=== PATIENT | female | born 1945 | race Caucasian/White ===

== ENCOUNTER 2017-01-05 00:57 | Emergency (ER) | payer MEDICARE, OTHER ==
[~2017-01-05] VITALS: Ht 160 cm; Wt 93.2 kg
[~2017-01-05 00:57] MED LIST: ACET-2321 PO; ACET325T51 PO; ASPI-1115 PO; ATOR20TA59 PO; CALC600T86 PO; CELE200C PO; HYDR-2164 PO; LEVO75TA58 PO; METO-64 PO; NIAC500T22 PO; OMEP-29 PO; ONDA4TAB4 PO; OXYC5TAB84 PO; POLY17PO18 PO; SODI3.5O5 BOTH EYES; [UNRECOGNIZED DRUG - OTHER] PO
--- OUTSIDE RECORDS SUMMARY | 2017-01-05 01:02 | XMS REPORT | Referral Summary ---
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 Diagnosis: Borderline diabetes Discharge Diagnosis: GERD (gastroesophageal reflux disease) Discharge Diagnosis: Hypertension Discharge Diagnosis: Hypothyroidism Discharge Diagnosis: Unilateral primary osteoarthritis, left hip Discharge Diagnosis: High cholesterol Discharge Disposition: 01-Home or Self Care Attending Physician: Jerry Daniel MD Admitting Physician: Jerry Daniel MD Referring Physician: Oswaldo Price MD Vital Signs Most recent to 1 oldest [Reference Range]: Blood Pressure 142/90 mmHg [90-140/60-90 mmHg] *HI* (11/02/16 9:05 AM) Problem List Condition Effective Dates Status Health Status Informant Appendectomy(Confirm 1991 - 1991 Resolved ed)1 Chest Active pain(Confirmed) GERD Active (gastroesophageal reflux disease)(Confirmed) H/O urinary Active retention(Confirmed) HH (hiatus Active hernia)(Confirmed) High Active cholesterol(Confirme d) Hyperlipidemia(Confi Active rmed) Hypertension(Confirm Active ed) Hypothyroidism(Confi Active rmed) Borderline Active diabetes(Confirmed) Benign Mass of Active foot(Confirmed) 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) Seizures(Confirmed) Resolved 1TAH Allergies, Adverse Reactions, Alerts Substance Reaction Severity Status HYDROcodone N/V Active Medications aspirin 325 mg oral tablet 1 tabs, Oral, Daily, # 30 tabs, 0 Refill(s) Start Date: 07/14/14 Status: Ordered atorvastatin 20 mg oral tablet See Instructions, TAKE ONE TABLET BY MOUTH DAILY, # 90 tabs, 1 Refill(s), eRx: [facility] #[id number] Start Date: 10/09/16 Status: Ordered calcium (as carbonate) 600 mg oral tablet 1 tabs, Oral, BID, # 60 tabs, 0 Refill(s) Start Date: 07/14/14 Status: Ordered hydrochlorothiazide 25 mg oral tablet 25 mg 1 tabs, Oral, Daily, # 90 tabs, 1 Refill(s), Pharmacy: [facility] # [id number], 1 tabs Oral Daily,x90 days Start Date: 05/22/16 Stop Date: 08/20/16 Status: Ordered levothyroxine 75 mcg (0.075 mg) oral tablet See Instructions, TAKE ONE TABLET BY MOUTH DAILY, # 30 tabs, 5 Refill(s), eRx: [facility] #[id number], TAKE ONE TABLET BY MOUTH DAILY Start Date: 09/08/16 Status: Ordered meclizine 25 mg oral tablet 25 mg 1 tabs, Oral, TID, as needed for dizziness, 0 Refill(s) Start Date: 12/03/15 Status: Ordered Metoprolol Succinate ER 50 mg oral tablet, extended release 50 mg 1 tabs, Oral, Daily, # 90 tabs, 1 Refill(s), Pharmacy: [facility] # [id number] Start Date: 05/22/16 Status: Ordered Leigh Ann 128 ophthalmic ointment 0 Refill(s) Start Date: 11/16/14 Status: Ordered niacin 500 mg oral capsule 500 mg 1 caps, Oral, Daily, # 60 caps, 0 Refill(s) Start Date: 11/02/16 Status: Ordered omeprazole 20 mg oral delayed release capsule See Instructions, TAKE ONE CAPSULE BY MOUTH EVERY DAY, # 30 caps, 3 Refill(s), eRx: [facility] #[id number], TAKE ONE CAPSULE BY MOUTH EVERY DAY Start Date: 05/08/16 Status: Ordered Results Hematology Most recent to 1 oldest [Reference Range]: WBC [4.8-10.8 5.7 10*3/uL 10*3/uL] (11/02/16 10:07 AM) RBC [4.00-5.20] 4.82 (11/02/16 10:07 AM) Hgb [12.0-16.0 14.3 gm/dL gm/dL] (11/02/16 10:07 AM) Hct [37.0-47.0 %] 43.6 % (11/02/16 10:07 AM) MCV [82.0-99.0 fL] 90.5 fL (11/02/16 10:07 AM) MCH [27.0-32.0 pg] 29.7 pg (11/02/16 10:07 AM) MCHC [32.0-36.0 32.8 gm/dL gm/dL] (11/02/16 10:07 AM) RDW [11.5-14.5 %] 13.2 % (11/02/16 10:07 AM) Platelet [150-400 255 10*3/uL 10*3/uL] (11/02/16 10:07 AM) MPV [8.8-14.8 fL] 10.8 fL (11/02/16 10:07 AM) Immature 0.4 % Granulocytes (11/02/16:07 AM) [0.0-1.0 %] Neutrophils [51-75 47 % %] *LOW* (11/02/16 10:07 AM) Lymphocytes [20-46 39 % %] (11/02/16 10:07 AM) Monocytes [4-11 %] 9 % (11/02/16 10:07 AM) Eosinophils [0-4 %] 3 % (11/02/16 10:07 AM) Basophils [0-2 %] 1 % (11/02/16 10:07 AM) Neutro Absolute 2.69 [1.90-7.00] (11/02/16 10:07 AM) Lymph Absolute 2.21 [0.80-3.30] (11/02/16 10:07 AM) [place] Absolute 0.52 [0.30-1.00] (11/02/16 10:07 AM) Eos Absolute 0.18 [0.00-0.50] (11/02/16 10:07 AM) Baso Absolute 0.05 [0.00-0.20] (11/02/16 10:07 AM) Chemistry Most recent to 1 oldest [Reference Range]: Sodium Lvl [135-144 145 mEq/L mEq/L] *HI* (11/02/16 10:07 AM) Potassium Lvl 3.9 mEq/L [3.5-5.2 mEq/L] (11/02/16 10:07 AM) Chloride [99-111 106 mEq/L mEq/L] (11/02/16 10:07 AM) CO2 [22-31 mEq/L] 29 mEq/L (11/02/16 10:07 AM) AGAP [3-20] 10 (11/02/16 10:07 AM) BUN [10-20 mg/dL] 23 mg/dL *HI* (11/02/16 10:07 AM) Glucose Lvl [70-99 107 mg/dL mg/dL] *HI* (11/02/16 10:07 AM) Creatinine Lvl 0.76 mg/dL [0.57-1.11 mg/dL] (11/02/16 10:07 AM) eGFR [>60 mL/min] >60 mL/min 1 (11/02/16 10:07 AM) Calcium Lvl 10.2 mg/dL [8.9-10.5 mg/dL] (11/02/16 10:07 AM) Albumin Lvl [3.4-4.8 4.4 gm/dL gm/dL] (11/02/16 10:07 AM) Total Protein 7.3 gm/dL [6.0-7.6 gm/dL] (11/02/16 10:07 AM) Globulin [1.8-4.0 2.9 gm/dL gm/dL] (11/02/16 10:07 AM) ALT [0-55 U/L] 32 U/L (11/02/16 10:07 AM) AST [5-34 U/L] 25 U/L (11/02/16 10:07 AM) Alk Phos [40-150 79 U/L U/L] (11/02/16 10:07 AM) Bili Total [0.2-1.2 1.0 mg/dL mg/dL] (11/02/16 10:07 AM) Hgb A1c [4.1-5.6 %] 6.2 % *HI* (11/02/16 10:07 AM) eAvg Glucose 131.2 mg/dL (11/02/16 10:07 AM) 1Result Comment: Multiply eGFR results by 1.21 for race. Immunizations Given and Recorded Vaccine Date Status Refusal Reason influenza virus vaccine, inactivated1 07/21/15 Recorded influenza virus vaccine, inactivated 07/22/14 Recorded influenza virus vaccine, live 06/25/12 Given 1Location History: [facility] Procedures Procedure Date Related Diagnosis Body Site Colonoscopy 02/06/13 Excision of benign neoplasm1 11/16/11 Pap smear, as part of routine gynecological 02/24/08 examination Colonoscopy2 09/27/07 Excision of soft tissue mass-left foot 09/27/07 Djrkcmigaqb-yajnvy-lhore cancer screening 2006 Cardiac catheterization-normal 2002 Catheterization of artery 1999 Appendectomy 1991 Hysterectomy1991 1left foot 2repeat in 09-27-17 3ovary sparing GONZALEZ Social History Social History Type Response Smoking Status Never smoker Assessment and Plan Extracted from: Title: Ambulatory Patient Education Author: Jerry Daniel MD Date: 10/07 Anesthesiology General Anesthesia, Adult, Care After Refer to this sheet in the next few weeks. These instructions provide you with information on caring for yourself after your procedure. Your health care provider may also give you more specific instructions. Your treatment has been planned according to current medical practices, but problems sometimes occur. Call your health care provider if you have any problems or questions after your procedure. WHAT TO EXPECT AFTER THE PROCEDURE After the procedure, it is typical to experience: Sleepiness. Nausea and vomiting. HOME CARE INSTRUCTIONS For the first 24 hours after general anesthesia: Have a responsible person with you. Do not drive a car. If you are alone, do not take public transportation. Do not drink alcohol. Do not take medicine that has not been prescribed by your health care provider. Do not sign important papers or make important decisions. You may resume a normal diet and activities as directed by your health care provider. Change bandages (dressings) as directed. If you have questions or problems that seem related to general anesthesia , call the hospital and ask for the ramp flight attendant or anesthesiologist electronic transaction implementer. SEEK MEDICAL CARE IF: You have nausea and vomiting that continue the day after anesthesia. You develop a rash. SEEK IMMEDIATE MEDICAL CARE IF: You have difficulty breathing. You have chest pain. You have any allergic problems. This information is not intended to replace advice given to you by your health care provider. Make sure you discuss any questions you have with your health care provider. Document Released: 01/14/2002 Document Revised: 10/29/2015 Document Reviewed: [employer] Interactive Patient Education 2016 [employer] Dentistry General Anesthesia, Adult General anesthesia is a sleep-like state of non-feeling produced by medicines ( anesthetics). General anesthesia prevents you from being alert and feeling pain during a medical procedure. Your caregiver may recommend general anesthesia if your procedure: Is long. Is painful or uncomfortable. Would be frightening to see or hear. Requires you to be still. Affects your breathing. Causes significant blood loss. LET YOUR CAREGIVER KNOW ABOUT: Allergies to food or medicine. Medicines taken, including vitamins, herbs, eyedrops, [id number]-miqxnrg medicines, and creams. Use of steroids (by mouth or creams). Previous problems with anesthetics or numbing medicines, including problems experienced by relatives. History of bleeding problems or blood clots. Previous surgeries and types of anesthetics received. Possibility of , if this applies. Use of cigarettes, alcohol, or illegal drugs. Any health condition(s), especially diabetes, sleep apnea, and high blood pressure. RISKS AND COMPLICATIONS General anesthesia rarely causes complications. However, if complications do occur, they can be life threatening. Complications include: A lung infection. A stroke. A heart attack. Waking up during the procedure. When this occurs, the patient may be unable to move and communicate that he or she is awake. The patient may feel severe pain. Older adults and adults with serious medical problems are more likely to have complications than adults who are young and healthy. Some complications can be prevented by answering all of your caregiver's questions thoroughly and by following all pre-procedure instructions. It is important to tell your caregiver if any of the pre-procedure instructions, especially those related to diet, were not followed. Any food or liquid in the stomach can cause problems when you are under general anesthesia. BEFORE THE PROCEDURE Ask your caregiver if you will have to spend the night at the hospital. If you will not have to spend the night, arrange to have an adult drive you and stay with you for 24 hours. Follow your caregiver's instructions if you are taking dietary supplements or medicines. Your caregiver may tell you to stop taking them or to reduce your dosage. Do not smoke for as long as possible before your procedure. If possible, stop smoking 36 weeks before the procedure. Do not take new dietary supplements or medicines within 1 week of your procedure unless your caregiver approves them. Do not eat within 8 hours of your procedure or as directed by your caregiver. Drink only clear liquids, such as water, black coffee (without milk or cream), and fruit juices (without pulp). Do not drink within 3 hours of your procedure or as directed by your caregiver. You may brush your teeth on the morning of the procedure, but make sure to spit out the toothpaste and water when finished. PROCEDURE You will receive anesthetics through a mask, through an intravenous (IV) access tube, or through both. A doctor who specializes in anesthesia (anesthesiologist ) or a nurse who specializes in anesthesia (nurse ramp flight attendant) or both will stay with you throughout the procedure to make sure you remain unconscious. He or she will also watch your blood pressure, pulse, and oxygen levels to make sure that the anesthetics do not cause any problems. Once you are asleep, a breathing tube or mask may be used to help you breathe. AFTER THE PROCEDURE You will wake up after the procedure is complete. You may be in the room where the procedure was performed or in a recovery area. You may have a sore throat if a breathing tube was used. You may also feel: Dizzy. Weak. Drowsy. Confused. Nauseous. Cold. These are all normal responses and can be expected to last for up to 24 hours after the procedure is complete. A caregiver will tell you when you are ready to go home. This will usually be when you are fully awake and in stable condition. This information is not intended to replace advice given to you by your health care provider. Make sure you discuss any questions you have with your health care provider. Document Released: 01/14/2009 Document Revised: 10/29/2015 Document Reviewed: [employer] Interactive Patient Education 2016 [employer] Emergency Medicine Heartburn Heartburn is a painful, burning sensation in the chest. It may feel worse in certain positions, such as lying down or bending over. It is caused by stomach acid backing up into the tube that carries food from the mouth down to the stomach (lower esophagus). CAUSES Large meals. Certain foods and drinks. Exercise. Increased acid production. Being overweight or obese. Certain medicines. SYMPTOMS Burning pain in the chest or lower throat. Bitter taste in the mouth. Coughing. DIAGNOSIS If the usual treatments for heartburn do not improve your symptoms, then tests may be done to see if there is another condition present. Possible tests may include: X-rays. Endoscopy. This is when a tube with a light and a camera on the end is used to examine the esophagus and the stomach. A test to measure the amount of acid in the esophagus (pH test). A test to see if the esophagus is working properly (esophageal manometry) . Blood, breath, or stool tests to check for bacteria that cause ulcers. TREATMENT Your caregiver may tell you to use certain xxra-pto-pulwbif medicines ( antacids, acid reducers) for mild heartburn. Your caregiver may prescribe medicines to decrease the acid in your stomach or protect your stomach lining. Your caregiver may recommend certain diet changes. For severe cases, your caregiver may recommend that the head of your bed be elevated on blocks. (Sleeping with more pillows is not an effective treatment as it only changes the position of your head and does not improve the main problem of stomach acid refluxing into the esophagus.) HOME CARE INSTRUCTIONS Take all medicines as directed by your caregiver. Raise the head of your bed by putting blocks under the legs if instructed to by your caregiver. Do not exercise right after eating. Avoid eating 2 or 3 hours before bed. Do not lie down right after eating. Eat small meals throughout the day instead of 3 large meals. Stop smoking if you smoke. Maintain a healthy weight. Identify foods and beverages that make your symptoms worse and avoid them. Foods you may want to avoid include: Peppers. Chocolate. High-fat foods, including fried foods. Spicy foods. Garlic and onions. [place] fruits, including oranges, grapefruit, perez, and limes. Food containing tomatoes or tomato products. Mint. Carbonated drinks, caffeinated drinks, and alcohol. Vinegar. SEEK IMMEDIATE MEDICAL CARE IF: You have severe chest pain that goes down your arm or into your jaw or neck. You feel sweaty, dizzy, or lightheaded. You are short of breath. You vomit blood. You have difficulty or pain with swallowing. You have bloody or black, tarry stools. You have episodes of heartburn more than 3 times a week for more than 2 weeks. MAKE SURE YOU: Understand these instructions. Will watch your condition. Will get help right away if you are not doing well or get worse. This information is not intended to replace advice given to you by your health care provider. Make sure you discuss any questions you have with your health care provider. Document Released: 02/24/2010 Document Revised: 12/30/2012 Document Reviewed: [employer] Interactive Patient Education 2016 [email or web address]. Preventive Medicine Blood Glucose Monitoring, Adult Monitoring your blood glucose (also know as blood sugar) helps you to manage your diabetes. It also helps you and your health care provider monitor your diabetes and determine how well your treatment plan is working. WHY SHOULD YOU MONITOR YOUR BLOOD GLUCOSE? It can help you understand how food, exercise, and medicine affect your blood glucose. It allows you to know what your blood glucose is at any given moment. You can quickly tell if you are having low blood glucose (hypoglycemia) or high blood glucose (hyperglycemia). It can help you and your health care provider know how to adjust your medicines. It can help you understand how to manage an illness or adjust medicine for exercise. WHEN SHOULD YOU TEST? Your health care provider will help you decide how often you should check your blood glucose. This may depend on the type of diabetes you have, your diabetes control, or the types of medicines you are taking. Be sure to write down all of your blood glucose readings so that this information can be reviewed with your health care provider. See below for examples of testing times that your health care provider may suggest. Type 1 Diabetes Test at least 2 times per day if your diabetes is well controlled, if you are using an insulin pump, or if you perform multiple daily injections. If your diabetes is not well controlled or if you are sick, you may need to test more often. It is a good idea to also test: Before every insulin injection. Before and after exercise. Between meals and 2 hours after a meal. Occasionally between 2:00 a.m. and 3:00 a.m. Type 2 Diabetes If you are taking insulin, test at least 2 times per day. However, it is best to test before every insulin injection. If you take medicines by mouth (orally), test 2 times a day. If you are on a controlled diet, test once a day. If your diabetes is not well controlled or if you are sick, you may need to monitor more often. HOW TO MONITOR YOUR BLOOD GLUCOSE Supplies Needed Blood glucose meter. Test strips for your meter. Each meter has its own strips. You must use the strips that go with your own meter. A pricking needle (lancet). A device that holds the lancet (lancing device). A journal or log book to write down your results. Procedure Wash your hands with soap and water. Alcohol is not preferred. Prick the side of your finger (not the tip) with the lancet. Gently milk the finger until a small drop of blood appears. Follow the instructions that come with your meter for inserting the test strip, applying blood to the strip, and using your blood glucose meter. Other Areas to Get Blood for Testing Some meters allow you to use other areas of your body (other than your finger) to test your blood. These areas are called alternative sites. The most common alternative sites are: The forearm. The thigh. The back area of the lower leg. The palm of the hand. The blood flow in these areas is slower. Therefore, the blood glucose values you get may be delayed, and the numbers are different from what you would get from your fingers. Do not use alternative sites if you think you are having hypoglycemia. Your reading will not be accurate. Always use a finger if you are having hypoglycemia. Also, if you cannot feel your lows (hypoglycemia unawareness), always use your fingers for your blood glucose checks. ADDITIONAL TIPS FOR GLUCOSE MONITORING Do not reuse lancets. Always carry your supplies with you. All blood glucose meters have a 24-hour "hotline" number to call if you have questions or need help. Adjust (calibrate) your blood glucose meter with a control solution after finishing a few boxes of strips. BLOOD GLUCOSE RECORD KEEPING It is a good idea to keep a daily record or log of your blood glucose readings. Most glucose meters, if not all, keep your glucose records stored in the meter. Some meters come with the ability to download your records to your home computer. Keeping a record of your blood glucose readings is especially helpful if you are wanting to look for patterns. Make notes to go along with the blood glucose readings because you might forget what happened at that exact time. Keeping good records helps you and your health care provider to work together to achieve good diabetes management. This information is not intended to replace advice given to you by your health care provider. Make sure you discuss any questions you have with your health care provider. Document Released: 10/10/2004 Document Revised: 10/29/2015 Document Reviewed: [employer] Interactive Patient Education 2016 [employer] No follow up information was provided. Extracted from: Title: Office Visit Note Author: Jerry Daniel MD Date: 11/02/16 Assessment/Plan 1.Borderline diabetes Will recheck a HgA1C and informed patient that we should see her every 3 months with lab. Ordered: Periodic Comp Preventive Med 65+ years Est 55272 2.GERD (gastroesophageal reflux disease) Continue with the current medications which seems to be working well. Ordered: Periodic Comp Preventive Med 65+ years Est 61976 3.High cholesterol Lab. Ordered: Periodic Comp Preventive Med 65+ years Est 60830 4.Hypertension No change in treatment. Ordered: Periodic Comp Preventive Med 65+ years Est 58367 5.Hypothyroidism Same medication to be taken daily. Ordered: Periodic Comp Preventive Med 65+ years Est 43984 6.Degenerative joint disease (DJD) of hip, I find patient stable for surgery and awaiting the lab and chest x-ray. Unilateral primary osteoarthritis, left hip Ordered: Periodic Comp Preventive Med 65+ years Est 55740 Borderline hyperglycemia. Ordered: Hemoglobin A1c Periodic Comp Preventive Med 65+ years Est 27924 Pre-op testing Ordered: CBC w/ Differential Comprehensive Metabolic Panel Periodic Comp Preventive Med 65+ years Est 44082 XR Chest 2 Views
--- OUTSIDE RECORDS SUMMARY | 2017-01-05 01:02 | XMS REPORT | Continuity of Care Document ---
Author Author [facility]IVE Organization [facility] Address Unknown Phone Unavailable Support Name Relationship Address Phone LONI WHITE MD Caregiver [address] [place] [phone] JUAN CARLOS GARCIA MD Caregiver [address] [place] [phone] RAMÓN MANCUSO Next Of Kin [address] [place] [address] Insurance Providers Payer Name Policy Number Subscriber Name Relationship Medicare [id number] Suyapa Mancuso 18 Self [employer] [id number] Suyapa Mancuso 18 Self Advance Directives Directive Response Recorded Date/Time Ordered Resuscitation Status Full Code 12/07/14 10:30am Resuscitation Documents on File Yes 12/07/14 9:17am Chief Complaint and Reason for Visit Chief Complaint LT TOTAL KNEE ARTHROPLASTY Reason for Visit Degenerative arthritis of left knee GERD (gastroesophageal reflux disease) Hyperlipemia Hypothyroidism Obesity (BMI 30-39.9) History of seizure Problems Medical Problems Problem Onset Date Status Degenerative arthritis of left knee Unknown Active GERD (gastroesophageal reflux disease) Unknown Active Hyperlipemia Unknown Active Hypothyroidism Unknown Active Obesity (BMI 30-39.9) Unknown Active History of seizure Unknown Active Medications Medication Dose Route Sig Days/Qty Instructions Order Date Discontinued Date Status Metoprolol Succinate 50 Mg PO DAILY 11/14/11 Active Hydrochlorothiazide 25 Mg PO DAILY 11/14/11 Active Levothyroxine Sodium 75 Mcg PO DAILY 11/14/11 Active Omeprazole 20 Mg PO DAILY 11/14/11 Active Aspirin 325 Mg PO DAILY 11/14/11 12/09/14 Discontinued Calcium Carbonate 600 Mg PO TWICE A DAY 11/14/11 Active Ezetimibe/Simvastatin 1 Tab PO DAILY 11/14/11 Active Sodium Chloride 11/19/14 Active Ferrous Sulfate Unknown Dose PO GIVE WITH BREAKFAST BEST WITH FOOD. Active Vits W-Ca,Fe,FA(<1Mg) 1 Tab PO DAILY 12/08/14 Active Acetaminophen 650 Mg PO FOUR TIMES DAILY 100 Qty 12/09/14 Active Aspirin 325 Mg PO TWICE A DAY 84 Qty 12/09/14 Active Meloxicam 15 Mg PO DAILY 30 Qty 12/09/14 Active Tramadol HCl 50-100 Mg PO Q4H PRN PAIN 60 Qty 12/09/14 Active Docusate Sodium 1 Cap PO TWICE A DAY 30 Qty 12/09/14 Active Social History Social History Problem Response Recorded Date/Time Chewing Tobacco Status No 02/04/2013 12:18pm Hx Substance Use No 02/04/2013 12:18pm Hx Alcohol Use No 02/04/2013 12:18pm Has the pt used tobacco in the last 12 months No 02/04/2013 12:18pm Query Response Start Date Stop Date Smoking Status Never smoker Hospital Discharge Instructions Instructions: Care Instructions: Reason for Hospitalization: Left knee replacement I was in the hospital because (patient own words): HAVING KNEE SURGERY ON MY LEFT KNEE Discharge Diet: regular Discharge Activity: WBAT Follow Up Appointments: DR WHITE ON December AT 9:45 AM FABIAN ON 12-11-14 AT 1:30PM FOR PHYSICAL THERAPY EVAL. PHONE [phone] Condition at time of discharge: Good Good Pass Condition at time of discharge: Good Pass Pass Plan of Care Discharge Date 12/09/14 4:33pm Disposition 01 DISCHARGED HOME, SELF-CARE Instructions/Education Provided [facility] Postop Instructions Prescriptions See Medications Section Functional Status Query Response Date Recorded Physical Hygiene Self December 09, 2014 3:46pm Disabilities None December 09, 2014 3:46pm Devices Used Walker December 09, 2014 3:46pm Dressing Self December 09, 2014 3:46pm Ambulation Self December 09, 2014 3:46pm Diet Self December 09, 2014 3:46pm Mental Status Alert Oriented December 09, 2014 3:46pm Disabilities None December 09, 2014 3:46pm Devices Used Walker December 09, 2014 3:46pm Physical Hygiene Self December 09, 2014 3:46pm Dressing Self December 09, 2014 3:46pm Ambulation Self December 09, 2014 3:46pm Diet Self December 09, 2014 3:46pm Allergies, Adverse Reactions, Alerts Allergen Type Severity Reaction Status Last Updated hydrocodone bit Adverse Reaction Unknown N/V Active 12/07/14 Immunizations Name Given Type Hx Influenza Vaccination Y JUL 2011 Historical Hx Pneumococcal Vaccination N JUL 2011 Historical Hx Influenza Vaccination Y JUL 2011 Historical Vital Signs Acute Vital Signs Vital Response Date/Time Temperature (Fahrenheit) 97.7 deg F (96.8 - 99.1) Temperature (Calculated Celsius) 36.39064 degrees C (36.0 - 37.3) Pulse Rate (adult) 71 bpm (60 - 100) Respiratory Rate 14 breaths/min (10 - 20) O2 Sat by Pulse Oximetry 94 % (90 - 100) Oxygen Delivery Method Room Air Blood Pressure 97/51 mm Hg Blood Pressure Source Automatic Cuff Height 5 ft 3 in Weight 218 lb Body Mass Index 38.0 kg/m^2 Results Test Source Date Result Interp. Ref. Range Comments Anion Gap December 09, 2014 5:09am 9 MEQ/L N 5-15 BUN/Creatinine Ratio December 09, 2014 5:09am 33 RATIO H 6-26 Blood Urea Nitrogen December 09, 2014 5:09am 26.0 MG/DL H 7-17 Calcium Level December 09, 2014 5:09am 9.9 MG/DL N 8.4-10.2 Calculated Osmolality December 09, 2014 5:09am 278 MOSM/KG N 261-280 Carbon Dioxide Level December 09, 2014 5:09am 27 MEQ/L N 22-30 Chemistry Specimen Hemolysis December 09, 2014 5:09am < 15 0-25 0-25 : No Hemolysis.26-70: Slight Hemolysis - can falsely elevate K and Urine Protein. 71-285: Moderate Hemolysis - can falsely elevate K, Troponin I, CA 19-9, PTH, CSF GLucose, and Urine Protein, and can falsely decrease Phenytoin. 286-999: Gross Hemolysis - can falsely elevate K, Troponin I, CA 19-9, PTH, CSF Glucose, and Urine Protine, and can falsely decrease Phenytoin. Recommend specimen recollection. Chloride Level December 09, 2014 5:09am 106 MEQ/L N 98-107 Creatinine December 09, 2014 5:09am 0.8 MG/DL N 0.7-1.2 Glomerular Filtration Rate Calc December 09, 2014 5:09am 71 - Glucose Level December 09, 2014 5:09am 107 MG/DL N 65-110 Hematocrit December 09, 2014 5:09am 38.1 % N 36-46 Hemoglobin December 09, 2014 5:09am 12.7 GM/DL N 12-16 Icterus Index December 09, 2014 5:09am < 2 0-7 MRSA Specimen Source November 17, 2014 1:32pm Nasal - COMMENT V74.8 Mean Corpuscular Hemoglobin December 09, 2014 5:09am 30.8 UUG N 26-34 Mean Corpuscular Hemoglobin Concent December 09, 2014 5:09am 33.3 GM/DL N 31-37 Mean Corpuscular Volume December 09, 2014 5:09am 92.5 UM3 N 80-100 Mean Platelet Volume December 09, 2014 5:09am 10.7 UM3 N 9.4-12.4 Methicillin-Resist S.aureus DNA PCR November 17, 2014 1:32pm Negative - COMMENT V74.8 Platelet Count December 09, 2014 5:09am 218 T/MM3 N 130-400 Potassium Level December 09, 2014 5:09am 3.8 MEQ/L N 3.6-5 RDW Standard Deviation December 09, 2014 5:09am 43.3 FL N 36.9-50.2 Red Blood Count December 09, 2014 5:09am 4.12 M/MM3 N 4.00-5.20 Sodium Level December 09, 2014 5:09am 142 MEQ/L N 134-144 Turbidity December 09, 2014 5:09am < 20 0-20 White Blood Count December 09, 2014 5:09am 12.2 T/MM3 H 4.5-11.0 Name: SUYAPA MANCUSO Unit #: [id number] : 1945 Sex: F Loc / Svc: MED DOS: Signed Report #: [id number] DIAGNOSTIC IMAGING REPORT TYPE OF EXAM: KNEE LEFT 2 VIEW Dictated By: WALTER BENSON MD Indication: ITS.REASON: POSTOP KNEE LEFT 2 VIEW Comparison: None Findings: Postoperative changes of left total knee replacement are seen. There is expected postoperative subcutaneous gas. No evidence of hardware failure or acute fracture. No retained radiopaque surgical instruments or sponges. Impression: New left total knee prosthesis without evidence of immediate complication. . Procedures Procedure Status Date Provider(s) ReynaldoANJU DNA AMP PROBE completed 11/17/14 Total knee arthroplasty completed 12/08/14 LONI WHITE MD Encounters Encounter Location Date/Time Discharged Inpatient [facility] 12/08/14 6:45am Registered Clinic [facility] 11/17/14 1:24pm Recent Diagnosis Degenerative arthritis of left knee GERD (gastroesophageal reflux disease) Hyperlipemia Hypothyroidism Obesity (BMI 30-39.9) History of seizure
--- OUTSIDE RECORDS SUMMARY | 2017-01-05 01:02 | XMS REPORT | Continuity of Care Document ---
Author Author [facility] Organization [facility] Address Unknown Phone Unavailable Support Name Relationship Address Phone LONI WHITE MD Caregiver [address] [place] [address] Unavailable LONI WHITE MD Caregiver [address] [place] [address] Unavailable JUAN CARLOS GARCIA MD Caregiver [address] [place] [address] [place] [address] Unavailable RAMÓN MANCUSO Next Of Kin [address] [place], [place] [id number] Insurance Providers Guarantor Suyapa Mancuso Address [address] [place] [address] Email [email or web address] Payer Cigna Medicare Supplement Policy Number [id number] Subscriber's Name Suyapa Mancuso Relationship 18 Self Group Number [id number] Effective Date 15 Payer Medicare Policy Number [id number] Subscriber's Name Suyapa Mancuso Relationship 18 Self Effective Date 10 Advance Directives Directive Response Recorded Date/Time Ordered Resuscitation Status Full Code 11/29/16 4:50pm Resuscitation Documents on File No 11/30/16 2:41pm DPOA for Healthcare Only Yes 11/30/16 2:41pm Living Will No 11/30/16 2:41pm Problems Active Problems Medical Problem Onset Date Status Degenerative arthritis of hip Unknown GERD (gastroesophageal reflux disease) Unknown Chronic History of seizure Unknown Hyperlipemia Unknown Chronic Hypothyroidism Unknown Chronic Obesity (BMI 30-39.9) Unknown Chronic 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 12/02 Acetaminophen (Tylenol) 325 Mg Tablet 650 Mg Oral Four Times Daily 100 Tablet 12/04/16 Aspirin (Ecotrin) 325 Mg Tablet. 325 Mg Oral Daily 12/02/15 Aspirin (Ecotrin) 325 Mg Tablet. 1 Tab Oral Twice A Day 84 12/05 Atorvastatin Calcium 20 Mg Tablet 20 Mg Oral Bedtime 12/02/15 Calcium Carbonate (Calcium) 600 Mg Tablet 600 Mg Oral Twice A Day 11/14/11 Celecoxib (Celebrex) 200 Mg Capsule 200 Mg Oral Twice A Day 28 Capsule 12/05/16 Hydrochlorothiazide 25 Mg Tablet 25 Mg Oral Daily 11/14/11 Ipromise 1 Cap Oral Daily 11/23/16 Levothyroxine Sodium 75 Mcg Tablet 75 Mcg Oral Daily 11/14/11 Metoprolol Succinate (Toprol Xl) 50 Mg Tab.sr.24h 50 Mg Oral Daily 11/14/11 Niacinamide (Niacin) 500 Mg Tablet 1 Tab Oral Daily 11/23/16 Omeprazole (Prilosec) 20 Mg Capsule.dr 20 Mg Oral Daily 11/14/11 Ondansetron Hcl (Zofran) 4 Mg Tablet 4 Mg Oral Every 6 Hours as needed for Nasal Congestion 10 Tablet 12/05/16 Oxycodone Hcl 5 Mg Tablet 5-15 Mg Oral Every 3 Hours as needed for Breakthrough Pain 60 Tablet 12/04/16 Polyethylene Glycol 3350 (Healthylax) 17 Gm Powd.pack 17 G Oral Daily 30 Packet 12/04/16 Sodium Chloride (Leigh Ann-128) 3.5 Gm Oint...g. 1 Applic Both Eyes Bedtime 11/19/14 Past Home Medications Medication Directions Ordered Status Aspirin 325 Mg Tablet, 325 Mg Oral Daily 11/14/11 Discontinued Social History Social History Problem Response Recorded Date/Time Onset Date Status Reason for Hospitalization LEFT TOTAL HIP ARTHROPLASTY 12/05/2016 2:32pm Not Applicable Not Applicable Chewing Tobacco Status No 02/04/2013 12:18pm Not Applicable Not Applicable Hx Substance Use No 11/30/2016 8:45am Not Applicable Not Applicable Hx Alcohol Use No 11/30/2016 8:45am Not Applicable Not Applicable Has the pt used tobacco in the last 12 months No 11/30/2016 8:45am Not Applicable Not Applicable Tobacco Usage none 12/02/2015 12:59pm Not Applicable Not Applicable Query Response Start Date Stop Date Smoking Status Never smoker Hospital Discharge Instructions Instructions: Care Instructions: Reason for Hospitalization: LEFT TOTAL HIP ARTHROPLASTY I was in the hospital because (patient own words): BECAUSE I HAD HEIDIOUS PAIN IN MY LEFT HIP. Discharge Diet: Resume normal diet as tolerated Discharge Activity: Continue the exercises you were given in the hospital three times a day. Your therapist will provide you with a home therapy program prior to your hospital discharge. As you feel stronger, increase the number of repetitions you do in each session. Please check with us before you swim, use a whirlpool, drive or ride a bicycle. Follow Up Appointments: Follow up as scheduled Pending Lab / Results: No Pending Lab Patient Instructions: Driving may be resumed once you are no longer taking narcotic medications and feel you can safely operate the vehicle. You may wish to practice in an empty parking lot at first. Keep in mind that your reaction time will be delayed for up to 6 weeks after surgery. Contact your surgeon for antibiotics to take before having dental work. Wound/Incision Care: In most cases, a Mepilex dressing will be placed at the time of surgery. This dressing will not need to be covered while showering. Leave dressing in place until your follow-up appointment as long as it remains clean, dry and stuck down well around the edges. Call your Doctor if you encounter a problem with your dressing. Please avoid submerging your incision until it is completely healed, once the Mepilex dressing is removed. This includes bathtubs, swimming pools, and hot tubs. DO NOT USE ALCOHOL, PEROXIDE, OR OINTMENTS of any kind on your incision. Pain Management/Treatment: Ice packs may be used, and will also help with the pain. You will be given a prescription for pain. Expected Signs/Symptoms: Some swelling around the incision, as well as in your feet and legs is normal. To help with this, elevate your feet on a footstool when sitting in a chair, and do the ankle pumps and circles whenever you are sitting still. Muscle action helps to move collected fluid out of the tissues and improve circulation. Ice packs may be used, and will also help with the pain. Report any persistent swelling, calf tenderness, increase in pain, or pain in the calf with warmth, or redness to your doctor. Notify Physician If: Report any complications to my office immmediately. This includes excessive bleeding, wound breakdown, redness around the wound, uncontrolled pain, or fever over 101 on 3 different measurements. Eat a balanced diet and get plenty of rest. During Business Hours:: If you have any questions or concerns, please call during regular office hours ([phone]). After Business Hours:: If you have any problems or need to reach a physician after hours or on the weekend please call the hospital's main number [phone] to have your physician paged. Condition at time of discharge: Good Plan of Care Discharge Date 12/05/16 5:50pm Disposition 06 HOME HEALTH SERVICE Instructions/Education Provided [facility] Postop Instructions [facility] General Instructions Prescriptions See Medication Section Additional Instructions/Education FOLLOW UP WITH DR WHITE 12-25-16 @ 8:30AM [facility] WILL CONTACT YOU ABOUT BEGINNING SERVICES. YOU CAN REACH THEM AT [phone]. Care Plan and Goals See Discharge Instructions Section Functional Status Query Response Date Recorded Mobility Status Ambulatory w/assist December 05, 2016 2:32pm Assistive Devices Cane December 05, 2016 2:32pm Activity Limitations Dizziness December 05, 2016 2:32pm Feeding Ability Independent December 05, 2016 2:32pm Toileting Ability Independent December 05, 2016 2:32pm Grooming Ability Independent December 05, 2016 2:32pm Dressing Ability Independent December 05, 2016 2:32pm Driving Ability Dependent December 05, 2016 2:32pm Housework Ability Independent December 05, 2016 2:32pm Meal Preparation Ability Independent December 05, 2016 2:32pm Stair Climbing Ability Independent December 05, 2016 2:32pm Ability to complete ADL's impeded by Impaired Mobility December 05, 2016 2:32pm Cognitive/Perceptual Impairments Impaired vision December 05, 2016 2:32pm Visual Assistive Devices Glasses December 03, 2016 2:00pm Preferred Method of Learning Reading Demonstration Listening Hands on December 03, 2016 2:00pm Allergies, Adverse Reactions, Alerts Allergen Type Severity Reaction Status Last Updated hydrocodone bit Adverse Reaction Unknown N/V Active 11/30/16 Immunizations Query Response on File Recorded Date/Time Hx Influenza Vaccination Y JUL 2016 11/30/16 8:45am Hx Pneumococcal Vaccination Y JUL 2011 11/30/16 8:45am Hx Influenza Vaccination Y JUL 2016 11/30/16 8:45am Influenza Vaccine Hx JUL 2016 12/01/16 2:51pm Vital Signs Acute Vital Signs Vital Response Date/Time Temperature (Fahrenheit) 97.9 deg F (96.8 - 99.1) 12/05/2016 12:38pm Temperature (Calculated Celsius) 36.61495 degrees C (36.0 - 37.3) 12/05/2016 12:38pm Temperature Source Oral 12/05/2016 12:38pm Pulse Rate (adult) 66 bpm (60 - 100) 12/05/2016 12:38pm Respiratory Rate 18 breaths/min (10 - 20) 12/05/2016 12:38pm O2 Sat by Pulse Oximetry 90 % (90 - 100) 12/05/2016 12:38pm Oxygen Delivery Method Room Air 12/05/2016 12:38pm Oxygen Delivery Method Nasal Cannula 12/01/2016 2:15pm Oxygen Flow Rate 2.00 L/min 12/05/2016 7:28am Blood Pressure 111/60 mm Hg 12/05/2016 12:38pm Blood Pressure Source Automatic Cuff 12/05/2016 12:38pm Height (Feet) 5 feet 12/05/2016 8:06am Height (Inches) 3.50 inches 12/05/2016 8:06am Weight (Kilograms) 104.200 kg 12/05/2016 8:39am Body Mass Index (BMI) 36.5 11/30/2016 8:46am Results Laboratory Results Test Name Result Units Flags Reference Collection Date/Time Result Date/ Time Comments White Blood Count 6.8 T/MM3 4.5-11.0 12/05/2016 4:18am 12/05/2016 5: 22am Red Blood Count 2.70 M/MM3 L 4.00-5.20 12/05/2016 4:18am 12/05/2016 5: 22am Hemoglobin 8.4 GM/DL L 12-16 12/05/2016 4:1812/05/2016 5:22am Hematocrit 25.2 % L 36-46 12/05/2016 4:1812/05/2016 5:22am Mean Corpuscular Volume 93.3 UM3 80-100 12/05/2016 4:18am 12/05/2016 5: 22am Mean Corpuscular Hemoglobin 31.1 UUG 26-34 12/05/2016 4:18am 2016 5:22am Mean Corpuscular Hemoglobin Concent 33.3 GM/DL 31-37 12/05/2016 4:18am 12/05/2016 5:22am RDW Standard Deviation 41.3 FL 36.9-50.2 12/05/2016 4:12/05/2016 5 :22am Platelet Count 217 T/MM3 130-400 12/05/2016 4:12/05/2016 5:22am Mean Platelet Volume 11.1 UM3 9.4-12.4 12/05/2016 4:12/05/2016 5: 22am Neutrophils (%) (Auto) 58.5 % 33-66 12/05/2016 4:12/05/2016 5: 22am Lymphocytes (%) (Auto) 20.9 % L 23-45 12/05/2016 4:12/05/2016 5: 22am Monocytes (%) (Auto) 12.2 % H 0-9.0 12/05/2016 4:12/05/2016 5:22am Eosinophils (%) (Auto) 7.1 % H 0-4 12/05/2016 4:12/05/2016 5:22am Basophils (%) (Auto) 0.6 % 0-2 12/05/2016 4:12/05/2016 5:22am Immature Granulocyte % (Auto) 0.7 % H 0.0-0.5 12/05/2016 4:2016 5:22am Absolute Neutrophils (auto) 4.0 T/MM3 1.8-7.7 12/05/2016 4:2016 5:22am Absolute Lymphocytes (auto) 1.4 T/MM3 1-4.8 12/05/2016 4:2016 5:22am Absolute Monocytes (auto) 0.8 T/MM3 0-0.8 12/05/2016 4:12/05/2016 5:22am Absolute Eosinophils (auto) 0.5 T/MM3 0-0.5 12/05/2016 4:2016 5:22am Absolute Basophils (auto) 0.0 T/MM3 0-0.2 12/05/2016 4:12/05/2016 5:22am Absolute Immature Granulocyte (auto 0.05 T/MM3 H 0.00-0.03 12/05/2016 4: 12/05/2016 5:22am Icterus Index < 2 0-7 12/04/2016 6:53am 12/04/2016 7:08am Chemistry Specimen Hemolysis < 15 0-25 12/04/2016 6:53am 12/04/2016 7 :08am 0-25: Specimen Exhibited No Hemolysis. Turbidity < 20 0-20 12/04/2016 6:53am 12/04/2016 7:08am Sodium Level 139 MEQ/L 134-144 12/04/2016 6:53am 12/04/2016 7:08am Potassium Level 3.5 MEQ/L L 3.6-5 12/04/2016 6:53am 12/04/2016 7:08am Chloride Level 106 MEQ/L 98-107 12/04/2016 6:53am 12/04/2016 7:08am Carbon Dioxide Level 29 MEQ/L 22-30 12/04/2016 6:53am 12/04/2016 7: 08am Anion Gap 4 MEQ/L L 5-15 12/04/2016 6:53am 12/04/2016 7:08am Blood Urea Nitrogen 15.0 MG/DL 7-12/04/2016 6:53am 12/04/2016 7: 08am Creatinine 0.7 MG/DL 0.7-1.2 12/04/2016 6:53am 12/04/2016 7:08am BUN/Creatinine Ratio 21 RATIO 6-26 12/04/2016 6:53am 12/04/2016 7:08am Glomerular Filtration Rate Calc 82 12/04/2016 6:53am 12/04/2016 7: 08am Glucose Level 121 MG/DL H 65-110 12/04/2016 6:53am 12/04/2016 7:08am Calculated Osmolality 270 MOSM/KG 261-280 12/04/2016 6:53am 12/04/2016 7:08am Calcium Level 8.6 MG/DL 8.4-10.2 12/04/2016 6:53am 12/04/2016 7:08am Glucometer 110 mg/dL 65-110 12/01/2016 2:06pm 12/01/2016 2:38pm Name: SUYAPA MANCUSO Unit #: [id number] : 1945 Sex: F Admit Date: 11/30/16 Loc / Svc: SRG Discharge Date: DIAGNOSTIC IMAGING REPORT Report #: [id number] [facility] [place] Indication: ITS.REASON: TOTAL HIP REVISION PROCEDURE: RF HIP LEFT 2 VIEW: Encounter: Initial Comparison: Left hip radiographs dated November 30, 2016 Findings: Two fluoroscopic spot images are submitted for interpretation. Images show three new cerclage wires being placed across the periprosthetic proximal femoral fracture. Impression: Fluoroscopy as above. Fluoroscopy time is 28.1 seconds. Fluoroscopy dose is 515.7 mRad. . Procedures Procedure Status Date Provider(s) Total replacement of left hip joint Completed 11/30/16 LONI WHITE MD Total hip revision Completed 12/01/16 LONI WHITE MD Encounters Encounter Location Arrival/Admit Date Discharge/Depart Date Attending Provider Discharged Inpatient [facility] 11/30/16 8:26am 12/05/16 5:50pm LONI WHITE MD
[2017-01-05 01:20] VITALS: TEMP 98.4; Ht 160 cm; Wt 93.2 kg
--- OUTSIDE RECORDS SUMMARY | 2017-01-05 02:45 | XMS REPORT | Continuity of Care Document ---
Author Author [facility] Organization [facility] Address Unknown Phone Unavailable Support Name Relationship Address Phone LONI WHITE MD Caregiver [address] [place] [phone] JUAN CARLOS GARCIA MD Caregiver [address] [place] [phone] RAMÓN MANCUSO Next Of Kin [address] [place] [address] Insurance Providers Payer Name Policy Number Subscriber Name Relationship Medicare [id number] Suyapa Mancuso 18 Self [place] [employer] [place] [id number] Suyapa Mancuso 18 Self Advance Directives Directive [...] AT 1:30PM FOR PHYSICAL THERAPY EVAL. PHONE [phone] Condition at time of discharge: Good Good [...] F (96.8 - 99.1) Temperature (Calculated Celsius) 36.53286 degrees C (36.0 - 37.3) Pulse Rate [...] H 4.5-11.0 Name: SUYAPA MANCUSO Unit #: [id number] : 1945 Sex: F Loc / Svc: MED DOS: Signed Report #: [id number] DIAGNOSTIC IMAGING REPORT TYPE OF EXAM: KNEE [...] MD Encounters Encounter Location Date/Time Discharged Inpatient [facility] 12/08/14 6:45am Registered Clinic [facility] 11/17/14 1:24pm Recent Diagnosis Degenerative arthritis of left knee GERD (gastroesophageal reflux disease) Hyperlipemia Hypothyroidism Obesity (BMI 30-39.9) History of seizure
--- NOTE | 2017-01-05 03:07 | ERPDOC ---
Departure Disposition Decision Date: Jan 05, 2017 Disposition Decision Time: 03:03 Disposition: 01 DISCHARGED HOME, SELF-CARE Impression Impression Impression: Primary Impression: Epistaxis Severity: Mild Condition: Stable Seen By: Physician only Referrals: JUAN CARLOS GARCIA MD (Family) 3 Days Patient Instructions: Nosebleed (ED) Problems/Meds/Labs Reviewed?: Yes Medications reviewed and manag: Yes Additional Instructions: You have some oozing from the skin in your nose. This is caused by a combination of the aspirin that you're taking and the blowing to clear snot. You may use nasal saline, vaseline, benadryl, and claritin/zyrtec to help decrease the blowing and the irritation. Follow up with your doctor to discuss whether or not you can decrease your aspirin dose to slow the bleeding. Follow up care ordered?: Yes Mental Status: Alert, Oriented HPI General Chief Complaint: Nosebleed Stated Complaint: NOSE BLEED Time Seen by Provider: 02:38 Source: patient Exam Limitations: no limitations HPI Nosebleed Initial Comments 71yo woman presents to the ER tonight with a nosebleed. Pt has had URI sx for the last 7 days; has had blood with nose blowing for most of that time. Pt presented tonight, because she expelled a particularly large clot while blowing her nose. Pt has never had sx like this before. Pt recently had hip replacement surgery. She is taking aspirin bid for anticoagulation. 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 (3) GERD (gastroesophageal reflux disease) (4) Obesity (BMI 30-39.9) Past Medical History Metabolic: hypercholesterolemia, hypertension, hypothyroidism GI: GERD Neurological: seizures Musculoskeletal: osteoarthritis Surgical History Cardiac: cardiac cath Reproductive/: hysterectomy Joint: foot, hip Vaccines Hx Influenza Vaccination: Yes (JUL 2016) Hx Pneumococcal Vaccination: Yes (JUL 2011) Social History Does patient use chewing tobac: No Substance Use Type: does not use Review of Systems ENMT Sinuses: congestion, rhinorrhea Nose: nosebleeds All other Systems All Other Systems: Reviewed and Negative Exam General General Nourishment: well nourished, well developed, appears stated age, no acute distress, adult, obese General Body Habitus: well groomed Vital Signs: RN Vital Signs have been reviewed: Yes, Temperature: 98.4, Source : Oral, Heart Rate: 80, Respiratory Rate: 18, BP: 151/70, Pulse Oximetry: 95 Height (Feet): 5 Height (Inches): 3.00 Fastrak Nosebleed Nose: other (Mild oozing from mucosa globally in both nares), NOT FOUND: abrasion, deformity, ecchymosis, erythema, pallor, swelling Mouth/Pharynx: NOT FOUND: amt of blood in pharynx, bleeding gums, blood in pharynx Neurologic RN Documented GCS Eye Opening: (4)Spontaneous Verbal: (5)Oriented Motor: (6)Obeys Commands Total: Supervisory Exam Body Habitus: well groomed Head: atraumatic Eyes: PERRL Nares: no exudate Neck: trachea midline Chest: symmetric Abdomen: non-distended Musculoskeletal: no deformity or atrophy Neurological: no abnormal movements Skin: pink, dry Psychological: alert, appropriate Differential Diagnoses Considering: Anti-coagulation, Dry Nasal Mucosa, Epistaxis Digitorum, Hypertension, Nasal Brookesmith Damage, Septal Hematoma Progress Progress Progress 71yo woman with very mild oozing from mucosal tissues. Pt has not PE findings c/ w anemia. Pt is not concerned with the bleeding associated with her URI sx; she was concerned that the clot represented worsening of her oozing. Discussed dx, prognosis, treatment, and RTC precautions with pt, who voiced understanding. Pt will need to discuss anticoagulation therapy with her PCM. LIBBY BONILLA DO Jan 05, 2017 03:06
[2017-01-05 03:45] VITALS: BP 112/60; PULSE 77; RESP 16; O2SAT 95
--- NOTE | 2017-01-05 03:45 | NUR ---
DEPART PT IS DISCHARGED AT THIS TIME, INSTRUCTIONS ARE REVIEWED AND UNDERSTANDING IS VOICED. PT LEAVES AMBULATORY.
== END 2017-01-05 03:45 | disposition home or self-care (01) ==
LOC: ED 00:57
DX: R04.0 Epistaxis (principal)